=== PATIENT | female | born 1935 | race Caucasian/White ===

== ENCOUNTER 2021-02-08 08:56 | Day surgery (SDC) | payer MEDICARE ==
[~2021-02-08 08:56] MED LIST: Sodium Chloride 0.9% 1,000 ML IV SCH
[2021-02-08] MEDS ORDERED: Midazolam 1 MG/ML 2 ML SDV ONE (09:10)
[2021-02-08] MEDS ORDERED: fentaNYL 100 MCG/2 ML SDV ONE (09:10)
[2021-02-08] MEDS ORDERED: Propofol 200 MG/20 ML SDV ONE (09:10)
--- NOTE | 2021-02-08 11:58 | OR ---
DATE OF PROCEDURE: 02/08/2021 SURGEON: Jesus De MD PROCEDURE: Colonoscopy. FINDINGS: 1. Sigmoid colon polyp, approximately 1 cm, completely removed using endoscopic mucosal resection technique. 2. Diverticulosis, mild, without evidence of diverticulitis or bleeding. 3. No definitive etiology for anemia. RISKS: Risks, benefits, alternatives, and limitations including, but not limited to infection, bleeding, perforation, false positives and false negatives were explained to the patient who wished to proceed. COMPLICATIONS: None. INTERDISCIPLINARY PROFESSOR: None. ANESTHESIA: MAC. PREOPERATIVE DIAGNOSIS: Anemia. POSTOPERATIVE DIAGNOSIS: Anemia. PROCEDURE IN DETAIL: The patient was placed in left lateral decubitus position. Digital rectal exam was performed without abnormality. Scope was introduced and advanced atraumatically to the ileocecal valve. Scope was brought back to the ascending, transverse, descending colon, and retroflexed. Within the sigmoid colon, the aforementioned polyp was identified. This was pedunculated in nature. Using [employer] Ink, the stalk and base were elevated with the ink and then transected using hot snare wire device. No abnormal bleeding was noted after removal. No abnormalities on retroflexion. Greater than 8 minutes was spent removing the scope. Prep was acceptable, approximately 90% of the luminal surface could be seen. Jesus De MD /[id number]
[2021-02-08 12:31] VITALS: BP 104/61; PULSE 83
== END 2021-02-08 12:05 | disposition home or self-care (01) ==
LOC: JP.SDS 08:56
PROVIDERS: ATTEND Surgery
DX: D12.5 Benign neoplasm of sigmoid colon (principal); D64.9 Anemia, unspecified; K57.30 Diverticulosis of large intestine without perforation or abscess without bleeding; J44.9 Chronic obstructive pulmonary disease, unspecified; F17.200 Nicotine dependence, unspecified, uncomplicated; M06.9 Rheumatoid arthritis, unspecified
CPT/HCPCS: 45390; J2250; J2704; J3010; J7030